=== PATIENT | male | born 1965 | race Two or more races ===

== ENCOUNTER 2019-03-12 20:18 | Emergency (ER) | payer OTHER ==
[~2019-03-12] VITALS: Ht 188 cm; Wt 102.1 kg
[2019-03-12 21:58] LABS: PLATELET COUNT 268 x10^3mcL (130-400)
[2019-03-12 21:59] LABS: RED CELL DISTRIBUTION WIDTH 15.1 % (11.5-14.5)
[2019-03-12 22:10] LABS: CALCIUM 9.3 mg/dL (8.5-10.1); CARBON DIOXIDE 23.8 mmol/L (21-32); CHLORIDE SERUM 100 mmol/L (98-107); CREATININE SERUM 1.2 mg/dL (0.7-1.3); GFR1 > 60 mL/min; GLUCOSE SERUM 88 mg/dL (74-106); POTASSIUM SERUM 3.3 mmol/L (3.5-5.1); SODIUM SERUM 137 mmol/L (136-145)
[2019-03-12 22:15] LABS: ALKALINE PHOSPHATASE 139 U/L (46-116); ALT/SGPT 65 U/L (16-63); AST/SGOT 36 U/L (15-37); BILIRUBIN TOTAL 0.6 mg/dL (0.20-1.00)
[2019-03-12 22:18] LABS: TOTAL PROTEIN, SERUM 8.3 g/dL (6.4-8.2)
[2019-03-13 02:46] VITALS: BP 120/79
== END 2019-03-13 02:47 | disposition home or self-care (01) ==
LOC: ED 20:18
PROVIDERS: Emergency Medicine
DX: N20.0 Calculus of kidney (principal); Z98.890 Other specified postprocedural states
CPT/HCPCS: 36415; J1885; J3010